=== PATIENT | female | born 1990 | race Caucasian/White ===

== ENCOUNTER 2017-04-07 02:25 | Emergency (ER) | payer BC ==
[~2017-04-07] VITALS: Ht 152.4 cm; Wt 74.3 kg
[2017-04-07 02:28] VITALS: Ht 152.4 cm; Wt 74.3 kg
[2017-04-07] MEDS ORDERED: ALUMINUM/MAGNESIUM SUSP 30 ML UDC PO STA (02:46)
[2017-04-07 03:11] LABS: BASO % 0.1 %; BASO ABS # 0.01 K/uL (0-0.2); COMPLETE YES; EOS % 1.5 %; HEMATOCRIT 36.6 % (37-47); IG% 0.4 %; LYMPH % 15.3 %; LYMPH ABS # 1.28 K/uL (1.2-3.4); MEAN CELL VOLUME 90.8 fL (80-100); MEAN CORPUSCULAR HEMOGLOBIN 31.8 pg (25-34); MEAN PLATELET VOLUME 11.5 fL (7.4-10.4); MONO % 9.3 %; NEUT % 73.4 %; PLATELET COUNT 103 K/uL (130-400); RED BLOOD COUNT 4.03 M/uL (4.2-5.4); WHITE BLOOD COUNT 8.39 K/uL (4.8-10.8)
[2017-04-07 03:31] LABS: ALT/SGPT 146 U/L (12-78); AST/SGOT 118 U/L (15-37); BLOOD UREA NITROGEN 11 mg/dl (7-18); BUN/CREATININE RATIO 12.3 (10-20); CALCIUM 8.9 mg/dl (8.5-10.1); CARBON DIOXIDE 23 mmol/L (21-32); CHLORIDE 106 mmol/L (98-107); CREATININE 0.87 mg/dl (0.60-1.20); GLUCOSE 85 mg/dl (70-99); SODIUM 138 mmol/L (136-145)
[2017-04-07 03:35] LABS: ALB/GLOB RATIO 0.7 (0.9-2); ALKALINE PHOSPHATASE 169 U/L (45-117)
[2017-04-07 04:30] VITALS: BP 145/92; PULSE 74; TEMP 36.5; O2SAT 98
--- NOTE | 2017-04-07 04:42 | EMERGENCY ROOM VISIT NOTE ---
History First contact with patient: 02:31 Chief Complaint: CHEST PAIN Stated Complaint: CHEST PAIN THROUGH TO BACK,CHILLS, CALLED L&D Nursing Triage Summary: c/o chest pain that radiates to back with cold and hot sweats. pt also reports trouble taking deep breaths. 38 weeks and 4 days . pain is mid sternal and radiates straight through her back. History of Present Illness The patient is a 27 year old female who presents to the Emergency Room with complaints of pain in her upper abdomen with radiation to the chest and back between the shoulder blades. The patient states that the pain started yesterday morning and has been gradually worsening throughout the day. She states the pain is worse when she takes a deep breath. She rates the discomfort an 8/10 and has not taken any medication for her symptoms. The patient is currently 38 weeks and 4 days . She was seen by her STEEL POST INSTALLER in the office yesterday morning and told that her blood pressure was slightly high, but they did not feel she had preeclampsia. She reports some nausea, but denies vomiting. She reports normal movement. She denies vaginal bleeding. She states that she has had some sensations consistent with contractions off and on for, but nothing consistent. This is her first . She denies any complications of this . Review of Systems A complete 10 point review of systems was reviewed with the patient with pertinent positives and negatives as per history of present illness. All else were negative. Past Medical/Surgical History Medical Problems: (1) HELLP (hemolytic anemia/elev liver enzymes/low platelets in ) Social History Smoking Status: Never Smoker Current/Historical Medications Scheduled Calcium/Vitamin D (Os-Randolph 500 Plus D), Unknown Dose PO DAILY Multivit/Min/Iron/Fol Ac/Pren ( Vitamin), 1 TAB PO DAILY Miscellaneous Medications Bioflavonoid Products (Vitamin C), Unknown Dose Physical Exam Vital Signs Date Time Temp Pulse Resp B/P (MAP) Pulse Ox O2 Delivery O2 Flow Rate FiO2 04/07/17 04:30 36.5 74 16 145/92 98 04/07/17 03:59 74 16 145/92 98 Room Air 04/07/17 03:21 67 16 137/92 98 Room Air 04/07/17 03:21 62 04/07/17 02:46 100 Room Air 04/07/17 02:28 36.5 77 24 143/96 100 Room Air Physical Exam VITALS: Vitals are noted on the nurse's note and reviewed by myself. Vital signs stable. GENERAL: This is a 27-year-old female, mildly anxious appearing but in no acute distress, nondiaphoretic, well-developed well-nourished. HEENT: PERRLA. Mucous membranes moist. Neck is supple without nuchal rigidity. HEART: Regular rate and rhythm without murmurs gallops or rubs. LUNGS: Clear to auscultation bilaterally without wheezes, rales or rhonchi. ABDOMEN: Fundal height consistent with gestational age. Mild tenderness in the epigastric region. No guarding or rebound tenderness. NEURO: Patient was alert and oriented to person place and time. Medical Decision & Procedures Laboratory Results 04/07/17 02:55 Red Blood Count 4.03, Mean Corpuscular Volume 90.8, Mean Corpuscular Hemoglobin 31.8, Mean Corpuscular Hemoglobin Concent 35.0, Mean Platelet Volume 11.5, Neutrophils (%) (Auto) 73.4, Lymphocytes (%) (Auto) 15.3, Monocytes (%) (Auto) 9.3, Eosinophils (%) (Auto) 1.5, Basophils (%) (Auto) 0.1, Neutrophils # (Auto) 6.16, Lymphocytes # (Auto) 1.28, Monocytes # (Auto) 0.78, Eosinophils # (Auto) 0.13, Basophils # (Auto) 0.01 04/07/17 02:55 Test 04/07/17 02:55 04/07/17 05:00 White Blood Count 8.39 K/uL (4.8-10.8) Red Blood Count 4.03 M/uL (4.2-5.4) Hemoglobin 12.8 g/dL (12.0-16.0) Hematocrit 36.6 % (37-47) Mean Corpuscular Volume 90.8 fL (80-100) Mean Corpuscular Hemoglobin 31.8 pg (25-34) Mean Corpuscular Hemoglobin Concent 35.0 g/dl (32-36) Platelet Count 103 K/uL (130-400) Mean Platelet Volume 11.5 fL (7.4-10.4) Neutrophils (%) (Auto) 73.4 % Lymphocytes (%) (Auto) 15.3 % Monocytes (%) (Auto) 9.3 % Eosinophils (%) (Auto) 1.5 % Basophils (%) (Auto) 0.1 % Neutrophils # (Auto) 6.16 K/uL (1.4-6.5) Lymphocytes # (Auto) 1.28 K/uL (1.2-3.4) Monocytes # (Auto) 0.78 K/uL (0.11-0.59) Eosinophils # (Auto) 0.13 K/uL (0-0.5) Basophils # (Auto) 0.01 K/uL (0-0.2) RDW Standard Deviation 46.5 fL (36.4-46.3) RDW Coefficient of Variation 14.1 % (11.5-14.5) Immature Granulocyte % (Auto) 0.4 % Immature Granulocyte # (Auto) 0.03 K/uL (0.00-0.02) Anion Gap 9.0 mmol/L (3-11) Est Creatinine Clear Calc Drug Dose 88.2 ml/min Estimated GFR () 106.6 Estimated GFR (Non- 91.9 BUN/Creatinine Ratio 12.3 (10-20) Calcium Level 8.9 mg/dl (8.5-10.1) Total Bilirubin 0.3 mg/dl (0.2-1) Aspartate Amino Transf (AST/SGOT) 118 U/L (15-37) Alanine Aminotransferase (ALT/SGPT) 146 U/L (12-78) Alkaline Phosphatase 169 U/L (45-117) Troponin I < 0.015 ng/ml (0-0.045) Total Protein 6.3 gm/dl (6.4-8.2) Albumin 2.5 gm/dl (3.4-5.0) Globulin 3.8 gm/dl (2.5-4.0) Albumin/Globulin Ratio 0.7 (0.9-2) Lipase 193 U/L (73-393) Urine Color YELLOW Urine Appearance CLEAR (CLEAR) Urine pH 7.0 (4.5-7.5) Urine Specific [place] 1.017 (1.000-1.030) Urine Protein NEG (NEG) Urine Glucose (UA) NEG (NEG) Urine Ketones NEG (NEG) Urine Occult Blood NEG (NEG) Urine Nitrite NEG (NEG) Urine Bilirubin NEG (NEG) Urine Urobilinogen NEG (NEG) Urine Leukocyte Esterase SMALL (NEG) Medications Administered Medications (Trade) Dose Ordered Sig/Eric Route Start Time Stop Time Status Last Admin Dose Admin Al Hydroxide/Mg Hydroxide (Maalox Susp) 30 ml NOW STAT PO 04/07/17 02:46 04/07/17 02:47 DC 04/07/17 02:54 30 ML ED Course The patient was evaluated as above. Labs were drawn and IV access was obtained. Patient was given Maalox without relief. Case was discussed with Dr. Adorno, who recommended sending the patient to L&D. Patient was reevaluated and findings were discussed. She will be taken directly to L&D. Medical Decision Differential diagnosis includes preeclampsia, HELLP syndrome, GERD, gallbladder disease, cardiac, among others. The patient is a 27-year-old female who presents today complaining of epigastric discomfort. Labs revealed a low platelet count of 103. The most recent platelet count I am able to find is 193 performed in January of this year. LFTs are elevated, with AST of 118, ALT of 146, and Alk phos of 169. Initial blood pressure was 143/96, and subsequent blood pressure was found to be 137/ 92. Given the persistent hypertension, elevated liver enzymes and mild thrombocytopenia, I am concerned for possible HELLP syndrome. I spoke with Dr. Adorno, who requested that I send the patient to labor and delivery. The patient remained stable throughout her stay in the emergency department. She was discharged to be taken directly to labor and delivery to be evaluated by OB/ COMPOUND FILLER. Medication Reconcilliation Current Medication List: was personally reviewed by ga Blood Pressure Screening Patient's blood pressure: Elevated blood pressure (will be followed by [employer] IN[employer]ER) Impression Primary Impression: HELLP syndrome Departure Information Referrals Clifton Adorno M.D. (PCP) Forms HOME CARE DOCUMENTATION FORM, IMPORTANT VISIT INFORMATION Patient Instructions [facility] Problem Qualifiers Primary Impression: HELLP syndrome Trimester: third trimester Qualified Codes: O14.23 - HELLP syndrome (HELLP) , third trimester
[2017-04-07 05:44] LABS: URINE APPEARANCE CLEAR (CLEAR); URINE BILIRUBIN NEG (NEG); URINE COLOR YELLOW; URINE EPITHELIAL CELL AUTO >30 /lpf (0-5); URINE NITRITE NEG (NEG); URINE SPECIFIC GRAVITY 1.017 (1.000-1.030); UROBILINOGEN NEG (NEG); ZZUR CULT IF INDIC CLEAN CATCH YES
[2017-04-07 05:48] LABS: MANUAL MICROSCOPIC REQUIRED? NO; REVIEW REQ? YES
[2017-04-07] MEDS ORDERED: BIOF500C2 (06:51)
[2017-04-14] MEDS ORDERED: PRENTAB26 PO (04:07)
[2017-04-14] MEDS ORDERED: CALC500C70 PO (06:52)
== END 2017-04-07 04:03 | disposition other institution (70) ==
LOC: C.EDB 02:27 → C.EDA 04:03
DX: O14.23 HELLP syndrome (HELLP), third trimester (principal)

== ENCOUNTER 2017-04-07 04:19 | Inpatient (IN) | payer BC ==
[~2017-04-07] VITALS: Ht 152.4 cm; Wt 75.0 kg
[2017-04-07] MEDS ORDERED: LACTATED RINGER'S 1000ML 1,000 ML IV SCH (05:02)
[2017-04-07] MEDS ORDERED: LACTATED RINGER'S 1000ML 1,000 ML IV PRN (05:02)
[2017-04-07] MEDS ORDERED: MAGNESIUM SULFATE IV ONE ×2 (05:30→06:00)
[2017-04-07] MEDS ORDERED: WTR IV ONE ×2 (05:30→06:00)
[2017-04-07 06:08] LABS: ALT/SGPT 178 U/L (12-78); BLOOD UREA NITROGEN 10 mg/dl (7-18); BUN/CREATININE RATIO 11.9 (10-20); CALCIUM 8.8 mg/dl (8.5-10.1); CARBON DIOXIDE 22 mmol/L (21-32); CHLORIDE 107 mmol/L (98-107); CREATININE 0.85 mg/dl (0.60-1.20); GLUCOSE 84 mg/dl (70-99); POTASSIUM 4.2 mmol/L (3.5-5.1); SODIUM 139 mmol/L (136-145)
[2017-04-07 06:11] VITALS: Ht 152.4 cm; Wt 75.0 kg
[2017-04-07 06:11] LABS: ALB/GLOB RATIO 0.6 (0.9-2); ALKALINE PHOSPHATASE 158 U/L (45-117); AST/SGOT 163 U/L (15-37)
[2017-04-07] MEDS: MAGNESIUM SULFATE / WTR 1,000 ML IV SCH (06:33)
[2017-04-07] MEDS ORDERED: BIOF500C2 (06:51)
[2017-04-07] MEDS ORDERED: MISOPROSTOL 25 MCG TAB PV STA (07:01)
[2017-04-07 07:08] LABS: INR 0.9 (0.9-1.1); PROTHROMBIN TIME (PATIENT) 9.4 SECONDS (9.0-12.0)
--- NOTE | 2017-04-07 07:37 | HISTORY & PHYSICAL EXAMINATION ---
DATE OF ADMISSION: 04/07/2017 REASON FOR ADMISSION AND HOSPITAL COURSE: Elevated liver functions and low platelet count. HISTORY OF PRESENT ILLNESS: The patient is a 27-year-old white female 1, para 0 who presents at 38.4 weeks seen in the ER this morning for upper midline midsternal pain. Upon workup, the patient was found to have a platelet count of 103 and elevated liver functions. This patient had noted to have a nosebleed on Thursday. Her blood pressure is stable. Her urine dipped 2+ on admission here on labor and delivery. The patient was subsequently admitted for HELLP syndrome and started on magnesium 6 gram loading dose followed by 2 grams per hour drip. course was uncomplicated. PAST MEDICAL HISTORY: Negative. PAST SURGICAL HISTORY: Negative. FAMILY HISTORY: Noncontributory. REVIEW OF SYSTEMS: Negative. ALLERGIES: No known allergies. MEDICATIONS: vitamins, Zyrtec as needed, vitamin C and calcium tablets. PHYSICAL EXAMINATION: HEENT: Within normal limits. No facial edema. LUNGS: Clear to auscultation. COR: Regular rate and rhythm. ABDOMEN: Soft. There is no right upper quadrant pain. There is midsternal pain that the patient has been experiencing. EXTREMITIES: No hand edema and no lower extremity edema. LABS: Platelet count is 103, hemoglobin 12.8, hematocrit 36.6. AST 163, ALT 178, alkaline phosphatase 138, LDH 294, BUN to creatinine ratio 11.9. PT 9.4, INR 0.9, PTT 26.9, fibrin degradation products 10:40 urine protein dipped 2+, negative by labs. ASSESSMENT: Atypical preeclampsia with HELLP syndrome. PLAN: Start magnesium sulfate 6 gram dose and then 2 gram drip followed by induction of labor with Cytotec. MTDD
[2017-04-07 10:28] LABS: URINE PROTIEN/CREAT RATIO 0.6 (0-0.2); URINE TOTAL PROTEIN 12.1 mg/dl (0-11.9)
[2017-04-07] MEDS ORDERED: LACTATED RINGER'S 1000ML 500 ML IV PRN ×2 (12:09→15:10)
[2017-04-07] MEDS ORDERED: OXYTOCIN 30 UNITS/500ML NSS IV PRN ×2 (12:15→19:15)
[2017-04-07 13:38] LABS: HEMATOCRIT 37.4 % (37-47); MEAN CELL VOLUME 89.9 fL (80-100); MEAN CORPUSCULAR HEMOGLOBIN 31.3 pg (25-34); RED BLOOD COUNT 4.16 M/uL (4.2-5.4); WHITE BLOOD COUNT 9.35 K/uL (4.8-10.8)
[2017-04-07 14:04] LABS: MEAN CORPUSCULAR HGB CONC 34.8 g/dl (32-36); MEAN PLATELET VOLUME 11.7 fL (7.4-10.4); PLATELET COUNT 91 K/uL (130-400)
[2017-04-07] MEDS ORDERED: FENTANYL CITRATE INJ 50 MCG/1 ML 2 ML VIAL ONE (14:11)
[2017-04-07] MEDS ORDERED: FENTANYL 2MCG/ML ROPIV 1.25MG/ML 100ML BAG EPI ONE (14:11)
[2017-04-07] MEDS ORDERED: EpHEDrine SULFATE INJ 50 MG/ML AMP ONE (14:11)
[2017-04-07] MEDS ORDERED: BUPIVACAINE 0.25% 30 ML VIAL ONE (14:11)
[2017-04-07] MEDS ORDERED: FENTANYL 2MCG/ML ROPIV 1.25MG/ML 100ML BAG EPI PRN (15:15)
[2017-04-07] MEDS ORDERED: EpHEDrine SULFATE INJ 50 MG/ML AMP IV PRN (15:15)
[2017-04-07] MEDS ORDERED: ONDANSETRON INJ 2 MG/ML 2 ML VIAL IV PRN (15:15)
[2017-04-07] MEDS ORDERED: NALOXONE HCL INJ 0.4 MG/1 ML VIAL/CARP IV PRN (15:15)
[2017-04-07] MEDS ORDERED: IBUPROFEN 600 MG TAB PO PRN (19:15)
[2017-04-07] MEDS ORDERED: HYDROCORTISONE ACETATE 25 MG SUPP PR PRN (19:15)
[2017-04-07] MEDS ORDERED: ACETAMINOPHEN 325 MG TAB PO PRN (19:15)
[2017-04-07] MEDS ORDERED: OXYCODONE/ACETAMINOPHEN 5-325 TAB PO PRN (19:15)
[2017-04-07] MEDS ORDERED: ACETAMINOPHEN/CODEINE 300/30MG TAB PO PRN ×2 (19:15)
[2017-04-07] MEDS ORDERED: BENZOCAINE 20% AER SPR 82.5 GM CAN EXT PRN (19:15)
[2017-04-07] MEDS ORDERED: SUPERCREAM 0.870 % 15GM JAR EXT PRN (19:15)
[2017-04-07] MEDS ORDERED: LANOLIN OINT EXT PRN ×2 (19:15)
[2017-04-07 19:49] LABS: HEMATOCRIT 34.4 % (37-47); MEAN CELL VOLUME 90.1 fL (80-100); MEAN CORPUSCULAR HEMOGLOBIN 31.2 pg (25-34); RED BLOOD COUNT 3.82 M/uL (4.2-5.4); WHITE BLOOD COUNT 9.94 K/uL (4.8-10.8)
[2017-04-07 19:50] LABS: MEAN CORPUSCULAR HGB CONC 34.6 g/dl (32-36); MEAN PLATELET VOLUME 11.9 fL (7.4-10.4); PLATELET COUNT 64 K/uL (130-400)
[2017-04-07] MEDS: DOCUSATE SODIUM 100 MG CAP PO SCH (20:11)
[2017-04-07 23:46] LABS: HEMATOCRIT 32.3 % (37-47); MEAN CELL VOLUME 89.2 fL (80-100); MEAN CORPUSCULAR HEMOGLOBIN 31.2 pg (25-34); MEAN PLATELET VOLUME 12.1 fL (7.4-10.4); PLATELET COUNT 54 K/uL (130-400); RED BLOOD COUNT 3.62 M/uL (4.2-5.4); WHITE BLOOD COUNT 11.17 K/uL (4.8-10.8)
[2017-04-08] MEDS: MAGNESIUM SULFATE / WTR 1,000 ML IV SCH ×2 (05:30→08:26)
[2017-04-08 05:39] LABS: HEMATOCRIT 32.7 % (37-47)
--- NOTE | 2017-04-08 06:40 | DELIVERY SUMMARY ---
DATE OF OPERATION: 04/07/2017 TIME OF DELIVERY: 1851 DELIVERY OF PLACENTA: 185 DELIVERY NOTE: The patient is a 27-year-old 1 para 0 at 38 weeks and 4 days gestation, who was admitted to labor and delivery on the morning of 04/07/2017 secondary to HELLP syndrome. Her platelets were found to be 102 and liver enzymes were elevated. She was given one dose of Cytotec intravaginally. She was found to be 1 cm, 50% effaced and minus 2 station. She progressed with oxytocin augmentation. Spontaneous rupture of membranes was noted at 1600 with clear amniotic fluid noted. She reached complete dilation at 1840 with the urge to push. Patient pushed to delivery at 1852. She delivered a viable male to an intact perineum in the left occiput anterior position. Nuchal cord x2 was reduced at delivery. The baby was placed on patient's abdomen. Cord was clamped x2 and cut. Apgars were 7 at one minute and 8 at five minutes. Please see nursing notes for further baby assessment. Cord blood was then obtained and intact placenta with 3-vessel cord was delivered at 1854 and sent to pathology. lower uterine segment and vagina was cleared of any blood clot and debris. Oxytocin infusion was then begun. Exploration of the perineum noted a first degree vaginal laceration which was repaired with 3-0 Vicryl suture in continuous running fashion. Excellent hemostasis was noted. No other lacerations were seen. Estimated blood loss was 300 mL. All sponge and instrument counts were found to be correct x2. Both patient and baby tolerated the delivery well and were in recovery with stable vital signs. I attest to the content of the Intraoperative Record and any orders documented therein. Any exception s are noted below.
[2017-04-08 06:47] LABS: MEAN CORPUSCULAR HEMOGLOBIN 31.5 pg (25-34); MEAN PLATELET VOLUME 11.8 fL (7.4-10.4); PLATELET COUNT 48 K/uL (130-400); RED BLOOD COUNT 3.59 M/uL (4.2-5.4); WHITE BLOOD COUNT 10.59 K/uL (4.8-10.8)
[2017-04-08 06:49] LABS: BUN/CREATININE RATIO 10.9 (10-20); CREATININE 0.8 mg/dl (0.60-1.20); POTASSIUM 4.1 mmol/L (3.5-5.1)
[2017-04-08 06:56] LABS: CALCIUM 7.1 mg/dl (8.5-10.1)
[2017-04-08] MEDS ORDERED: PRENATAL VITAMIN TAB PO SCH (08:00)
[2017-04-08] MEDS ORDERED: DIPHTHERIA/TETANUS/PERTUSSIS 0.5 ML SYR/VIAL IM. ONE (08:00)
[2017-04-08] MEDS ORDERED: FERROUS SULFATE 325 MG TAB PO SCH (08:00)
[2017-04-08 08:05] LABS: MEAN CELL VOLUME 89.8 fL (80-100); MEAN CORPUSCULAR HGB CONC 34.6 g/dl (32-36)
[2017-04-08] MEDS ORDERED: NURSING VERBAL MED ORDER ONE (08:15)
[2017-04-08] MEDS: DOCUSATE SODIUM 100 MG CAP PO SCH (08:17)
[2017-04-08] MEDS ORDERED: DEXAMETHASONE INJ 10 MG in SYRINGE 0 ML IV SCH (10:30)
--- NOTE | 2017-04-08 11:07 | Progress Note ---
Progress Note Date of Service Apr 08, 2017. Progress Note Met pt and reviewed care doing well c/o midsternal pain Stable vitals No bleeding from any orifice Pt on magnesium sulphate Rx for Decadron given IV plan labs boogie for 12:00 noemí reevaluate after labs
[2017-04-08 12:41] LABS: HEMATOCRIT 32.3 % (37-47); MEAN CELL VOLUME 89.5 fL (80-100); MEAN CORPUSCULAR HEMOGLOBIN 31.3 pg (25-34); RED BLOOD COUNT 3.61 M/uL (4.2-5.4); WHITE BLOOD COUNT 10.72 K/uL (4.8-10.8)
[2017-04-08 12:48] LABS: INR 0.9 (0.9-1.1); PARTIAL THROMBOPLASTIN RATIO 1.1; PROTHROMBIN TIME (PATIENT) 9.9 SECONDS (9.0-12.0)
[2017-04-08 12:50] LABS: MEAN PLATELET VOLUME 10.7 fL (7.4-10.4); PLATELET COUNT 36 K/uL (130-400)
[2017-04-08 13:28] LABS: BUN/CREATININE RATIO 12.9 (10-20); CREATININE 0.7 mg/dl (0.60-1.20)
[2017-04-08 13:46] LABS: MAGNESIUM THERAPEUTIC(L&DONLY) 6.3 mg/dl (1.8-2.4)
--- NOTE | 2017-04-08 14:41 | Progress Note ---
Progress Note Date of Service Apr 08, 2017. Progress Note Pt labs reviewed Worsening platelets and LFT's discussed labs with pt discussed transfer to [facility] [place] Dr Castrejon has agreed to accept pt consent signed for transfer
[2017-04-08] MEDS ORDERED: BISACODYL 5 MG TABEC PO SCH (20:00)
[2017-04-09] MEDS ORDERED: BISACODYL 10 MG SUPP PR PRN (07:00)
[2017-04-14] MEDS ORDERED: PRENTAB26 PO (04:07)
[2017-04-14] MEDS ORDERED: CALC500C70 PO (06:52)
== END 2017-04-08 15:23 | disposition short-term general hospital (02) | DRG 775 ==
LOC: C.LD 04:19 → C.OPB 04:19 → C.LD 05:05
PROVIDERS: ADMIT Obstetrics & Gynecology; ATTEND Obstetrics & Gynecology
PROC: 0UQGXZZ Repair Vagina, External Approach (ICD-10-PCS; principal; 2017-04-07)
PROC: 10E0XZZ Delivery of Products of Conception, External Approach (ICD-10-PCS; principal; 2017-04-07)
PROC: 3E0P7GC Introduction of Other Therapeutic Substance into Female Reproductive, Via Natural or Artificial Opening (ICD-10-PCS; principal; 2017-04-07)
DX: O14.24 HELLP syndrome, complicating childbirth (principal); O69.81X0 Labor and delivery complicated by cord around neck, without compression, not applicable or unspecified; O71.4 Obstetric high vaginal laceration alone; Z37.0 Single live birth; Z3A.38 38 weeks gestation of pregnancy

== ENCOUNTER 2017-04-14 14:29 | Emergency (ER) | payer BC ==
[~2017-04-14] VITALS: Ht 152.4 cm; Wt 66.4 kg
[~2017-04-14 14:29] MED LIST: BIOF500C2; CALC500C70 PO; PRENTAB26 PO
[2017-04-14 14:33] VITALS: TEMP 37.1; Ht 152.4 cm; Wt 66.4 kg
[2017-04-14] MEDS ORDERED: DOCU100C PO (15:09)
[2017-04-14] MEDS ORDERED: ASCO500T3 PO (15:09)
--- NOTE | 2017-04-14 15:14 | EMERGENCY ROOM VISIT NOTE ---
History First contact with patient: 14:54 Chief Complaint: ABDOMINAL PAIN Stated Complaint: ABD. PAIN, SWEATS/COLD, LOWER BACK PAIN Nursing Triage Summary: pt to the ED with c/o post 1 wk ago and is having abd pain that is diffuse sent here by OB light bleeding was seen in [place] for HELP syndrome on 04/10 310 platlets and increased LFT's see orange sheet History of Present Illness The patient is a 27 year old female who presents to the Emergency Room with complaints of generalized abdominal pain. She delivered at [facility] 1 week previously 04/07 with a healthy baby boy (Oleksandr). She was induced for pre- eclampsia (headaches, abdominal pain and hypertension) @ 38 + 4 weeks 04/07. Umbilical and suprapubic constant abdominal pain for 2 days, hurts with sneezing /coughing and feels better when she bends over, severity 8/10 currently, at worse 10/10, associated night time sweating. She denies any nausea or vomiting. Having normal/slightly hard BM - last time this morning. No current headaches. Her back is sore where her epidural was placed - was kept in for 4 days due to low platelets. Having continued PV bleeding - few clots quater sized. 1 degree tear with 1 stitch. Review of Systems See below Constitutional: + chills, No fever Eyes: No worsening of vision ENT: No hearing loss Respiratory: No cough, No sputum, No shortness of breath Cardiovascular: + edema (improving from ), No chest pain, No claudication, No palpitations Abdomen: + pain, No nausea, No vomiting, No diarrhea, No constipation, No GI bleeding Musculoskeletal: No joint pain, No muscle pain Genitourinary - Female: No dysuria, No urinary frequency, No urinary urgency , No urinary incontinence, No urinary retention, No hematuria Endocrine: No fatigue, No excessive thirst, No excessive urination Integumentary: No rash, No itch Past Medical/Surgical History Medical Problems: (1) HELLP (hemolytic anemia/elev liver enzymes/low platelets in ) Social History Smoking Status: Never Smoker Smokeless Tobacco Use: No Alcohol Use: occasionally Drug Use: none Marital Status: Housing Status: lives with family Occupation Status: employed (hairdresser) Current/Historical Medications Scheduled Ascorbic Acid (Vitamin C), 1 TAB PO DAILY Calcium/Vitamin D (Os-Randolph 500 Plus D), 1 TAB PO DAILY Cephalexin Monohydrate (Keflex), 500 MG PO QID Docusate Sodium (Stool Softener), 100 MG PO BID Multivit/Min/Iron/Fol Ac/Pren ( Vitamin), 1 TAB PO DAILY Physical Exam Vital Signs Date Time Temp Pulse Resp B/P (MAP) Pulse Ox O2 Delivery O2 Flow Rate FiO2 04/14/17 17:56 77 18 119/91 100 Room Air 04/14/17 16:37 78 18 108/68 98 Room Air 04/14/17 15:45 78 18 123/74 98 Room Air 04/14/17 14:33 37.1 98 16 120/85 97 Room Air Pain Rating (0-10): 8 Physical Exam GENERAL: Awake, alert, not ill appearing, in no apparent distress HEAD: Normocephalic, atraumatic. No edema. EYES: Normal conjunctiva. Sclera non-icteric. NECK: Supple. No nuchal rigidity. RESPIRATORY: CTA bilaterally. No wheezes rales or rhonchi. CARDIAC: Borderline tachycardic rate, normal rhythm. ABDOMEN: Soft, distended from recent delivery. tenderness to palpation periumbilical, suprapubic, and LLQ. CVA tenderness on left flank MUSCULOSKELETAL: Atraumatic. No edema. NEURO: Normal sensorium. Medical Decision & Procedures Laboratory Results 04/14/17 15:45 Red Blood Count 3.66, Mean Corpuscular Volume 91.0, Mean Corpuscular Hemoglobin 31.4, Mean Corpuscular Hemoglobin Concent 34.5, Mean Platelet Volume 9.3, Neutrophils (%) (Auto) 70.1, Lymphocytes (%) (Auto) 17.5, Monocytes (%) (Auto) 8.8, Eosinophils (%) (Auto) 1.9, Basophils (%) (Auto) 0.2, Neutrophils # (Auto) 5.91, Lymphocytes # (Auto) 1.48, Monocytes # (Auto) 0.74, Eosinophils # (Auto) 0.16, Basophils # (Auto) 0.02 04/14/17 15:45 Test 04/14/17 15:40 04/14/17 15:45 Urine Color DK YELLOW Urine Appearance CLOUDY (CLEAR) Urine pH 5.5 (4.5-7.5) Urine Specific [place] 1.027 (1.000-1.030) Urine Protein NEG (NEG) Urine Glucose (UA) NEG (NEG) Urine Ketones NEG (NEG) Urine Occult Blood 3+ (NEG) Urine Nitrite NEG (NEG) Urine Bilirubin NEG (NEG) Urine Urobilinogen NEG (NEG) Urine Leukocyte Esterase MODERATE (NEG) Urine WBC (Auto) >30 /hpf (0-5) Urine RBC (Auto) 10-30 /hpf (0-4) Urine Hyaline Casts (Auto) 10-30 /lpf (0-5) Urine Epithelial Cells (Auto) 5-10 /lpf (0-5) Urine Bacteria (Auto) NEG (NEG) White Blood Count 8.44 K/uL (4.8-10.8) Red Blood Count 3.66 M/uL (4.2-5.4) Hemoglobin 11.5 g/dL (12.0-16.0) Hematocrit 33.3 % (37-47) Mean Corpuscular Volume 91.0 fL (80-100) Mean Corpuscular Hemoglobin 31.4 pg (25-34) Mean Corpuscular Hemoglobin Concent 34.5 g/dl (32-36) Platelet Count 266 K/uL (130-400) Mean Platelet Volume 9.3 fL (7.4-10.4) Neutrophils (%) (Auto) 70.1 % Lymphocytes (%) (Auto) 17.5 % Monocytes (%) (Auto) 8.8 % Eosinophils (%) (Auto) 1.9 % Basophils (%) (Auto) 0.2 % Neutrophils # (Auto) 5.91 K/uL (1.4-6.5) Lymphocytes # (Auto) 1.48 K/uL (1.2-3.4) Monocytes # (Auto) 0.74 K/uL (0.11-0.59) Eosinophils # (Auto) 0.16 K/uL (0-0.5) Basophils # (Auto) 0.02 K/uL (0-0.2) RDW Standard Deviation 48.2 fL (36.4-46.3) RDW Coefficient of Variation 14.5 % (11.5-14.5) Immature Granulocyte % (Auto) 1.5 % Immature Granulocyte # (Auto) 0.13 K/uL (0.00-0.02) Prothrombin Time 10.2 SECONDS (9.0-12.0) Prothromb Time International Ratio 1.0 (0.9-1.1) Activated Partial Thromboplast Time 26.1 SECONDS (21.0-31.0) Partial Thromboplastin Ratio 1.0 Anion Gap 7.0 mmol/L (3-11) Est Creatinine Clear Calc Drug Dose 100.7 ml/min Estimated GFR () 134.0 Estimated GFR (Non- 115.6 BUN/Creatinine Ratio 19.9 (10-20) Calcium Level 9.0 mg/dl (8.5-10.1) Magnesium Level 2.2 mg/dl (1.8-2.4) Total Bilirubin 0.4 mg/dl (0.2-1) Aspartate Amino Transf (AST/SGOT) 25 U/L (15-37) Alanine Aminotransferase (ALT/SGPT) 117 U/L (12-78) Alkaline Phosphatase 136 U/L (45-117) Total Protein 6.4 gm/dl (6.4-8.2) Albumin 2.7 gm/dl (3.4-5.0) Globulin 3.7 gm/dl (2.5-4.0) Albumin/Globulin Ratio 0.7 (0.9-2) Medications Administered Medications (Trade) Dose Ordered Sig/Eric Route Start Time Stop Time Status Last Admin Dose Admin Sodium Chloride 1,000 ml @ 999 mls/hr Q1H1M STAT IV 04/14/17 15:31 04/14/17 16:31 DC 04/14/17 15:47 999 MLS/HR Ceftriaxone Sodium (Rocephin Inj) 1 gm NOW STAT IV 04/14/17 16:30 04/14/17 16:31 DC 04/14/17 17:52 1 GM ED Course 1455: full h&p obtained from patient 1518: case discussed with dr. morales; who obtained his own h&p 1700: Patient sent for Pelvic TVUS. 1730: patient visited by OB, Dr. Campbell 1745: Pelvic exam performed by OB. 1815: Patient cleared for discharge Medical Decision Prior records/ancillary studies reviewed. Triage Nursing notes reviewed. Additional history obtained from patient. The patient's history was concerning for abdominal pain. Differential diagnosis: Etiologies such as endometritis, constipation, UTI, renal colic, pancreatitis, obstruction, mesenteric ischemia, infections, diverticulitis,as well as others were entertained. Physical examination findings: As above. ER treatment provided: Morphine Cytotec Diagnostics interpreted by me: The labs revealed nothing abnormal. Imaging studies: TVUS reveals products in the vaginal canal, likely clots. Consultation: A consultation was placed with [facility]. The case was discussed and diagnostics were reviewed. The patient was evaluated in the ER for further treatment. By the evaluation outlined above emergent etiologies such as appendicitis, diverticulitis, PUD, biliary pathology, UTI, pancreatitis, obstruction, mesenteric ischemia, aortic pathology, infections, inflammatory bowel disease, renal colic, as well as others were deemed relatively unlikely. The patient and family informed about the findings as listed above. All questions were answered and they were pleased with the treatment. Return instructions were outlined and the patient was discharged in stable condition. Outpatient prescription management: keflex 500mg QID Cytotec given prior to DC Referral: The patient was referred back to OB for follow-up in 2 to 3 days for a recheck of the current condition. Medication Reconcilliation Current Medication List: was personally reviewed by me Blood Pressure Screening Patient's blood pressure: Normal blood pressure Impression Primary Impression: UTI (urinary tract infection) Departure Information Dispostion Home / Self-Care Condition FAIR Prescriptions Cephalexin Monohydrate (Keflex) 500 Mg Cap 500 MG PO QID, #40 CAP Prov: Kam Morales, 04/14/17 Referrals Higinio Brown D.O. (PCP) Patient Instructions My [facility] Additional Instructions Discussed case with Dr. Morales and Dr. Campbell: --Pain medication given prior to discharge; --Started on keflex and given as outpatient to treat for UTI --Cytotec given for potential of retained POC --Plan to follow up with OB in 2-[address] Walter note for complete discharge instructions and plan Resident Tracking Resident Involvement: Resident Care Provided Care Provided: Adult ED Problem Qualifiers Primary Impression: UTI (urinary tract infection) Urinary tract infection type: site unspecified Hematuria presence: without hematuria Qualified Codes: N39.0 - Urinary tract infection, site not specified
[2017-04-14] MEDS ORDERED: SODIUM CHLORIDE 0.9% 1000ML 1,000 ML IV STA (15:31)
[2017-04-14 16:01] LABS: BASO % 0.2 %; BASO ABS # 0.02 K/uL (0-0.2); COMPLETE YES; EOS % 1.9 %; HEMATOCRIT 33.3 % (37-47); IG% 1.5 %; LYMPH % 17.5 %; LYMPH ABS # 1.48 K/uL (1.2-3.4); MEAN CORPUSCULAR HEMOGLOBIN 31.4 pg (25-34); MEAN CORPUSCULAR HGB CONC 34.5 g/dl (32-36); MEAN PLATELET VOLUME 9.3 fL (7.4-10.4); MONO % 8.8 %; NEUT % 70.1 %; PLATELET COUNT 266 K/uL (130-400); RED BLOOD COUNT 3.66 M/uL (4.2-5.4); WHITE BLOOD COUNT 8.44 K/uL (4.8-10.8)
[2017-04-14 16:05] LABS: URINE APPEARANCE CLOUDY (CLEAR); URINE BILIRUBIN NEG (NEG); URINE COLOR DK YELLOW; URINE NITRITE NEG (NEG); URINE PH 5.5 (4.5-7.5); URINE SPECIFIC GRAVITY 1.027 (1.000-1.030); UROBILINOGEN NEG (NEG)
[2017-04-14 16:06] LABS: MANUAL MICROSCOPIC REQUIRED? NO; REVIEW REQ? NO
[2017-04-14 16:17] LABS: PROTHROMBIN TIME (PATIENT) 10.2 SECONDS (9.0-12.0)
[2017-04-14 16:20] LABS: BUN/CREATININE RATIO 19.9 (10-20); CREATININE 0.72 mg/dl (0.60-1.20); MAGNESIUM 2.2 mg/dl (1.8-2.4); POTASSIUM 3.9 mmol/L (3.5-5.1)
[2017-04-14 16:23] LABS: ALB/GLOB RATIO 0.7 (0.9-2)
[2017-04-14] MEDS ORDERED: CEFTRIAXONE SOD INJ 1 GM ADDVIAL IV STA (16:30)
--- NOTE | 2017-04-14 17:25 | DIAGNOSTIC IMAGING REPORT ---
PELVIC COMPLETE NON OB HISTORY: 27 years-old Female recent del w/ lower abd pain acute pelvic pain. Patient is status post vaginal delivery one week prior. Initial exam. COMPARISON: None available. TECHNIQUE: Multiple real-time sonographic images of the deep pelvic structures were obtained transabdominally assessing grayscale appearance and color flow. FINDINGS: Anteflexed uterus measures 14.3 x 8.1 x 10.0 cm. Endometrium measures 1.1 cm and is mildly heterogeneous with areas of internal vascularity detected. Heterogeneous material within the endometrial canal is seen measuring up to 0.7 x 1.0 x 1.5 cm. Left ovary measures 2.9 x 1.7 x 2.3 cm with arterial inflow documented. Right ovary measures 3.3 x 1.4 x 1.5 cm with arterial inflow documented. There is no significant free pelvic fluid. IMPRESSION: 1. Heterogeneous material within the endometrial canal demonstrating internal vascularity is very suspicious for retained products of conception. Correlate with clinical exam and beta hCG level. 2. Unremarkable sonographic appearance of the bilateral ovaries without evidence of torsion. The above report was generated using voice recognition software. It may contain grammatical, syntax or spelling errors. Electronically signed by: Jeremy Mullins M.D. 04/14/2017 5:23 PM Dictated Date/Time: 04/14/2017 5:18 PM
[2017-04-14] MEDS ORDERED: CEPH500C PO (18:03)
--- NOTE | 2017-04-14 18:03 | Medical Consult ---
Consultation Date of Consultation: Apr 14, 2017. Attending Physician: Reason for Consultation: Abdominal pain, s/p History of Present Illness Patient is a 27 yo s/p a week ago on 04/08/17 Delivery was complicated by HELLP syndrome. She was transferred to [facility] on same day HELLP syndrome resolved and she was discharged on 04/10 from [facility] She has been doing well until 2 days ago when she started to have lower abd pain and got worse today It has been dull lower abdominal pain on both sides and middle over the bladder. No HOPE/ Change is vision/ RUQ pain/ N&V Night sweats +, no fever Apetite has been good VB is minimal No d/c or odor She has been breast feeding Past Medical/Surgical History Medical Problems: (1) Lower abdominal pain Status: Acute (2) UTI (urinary tract infection) Status: Acute Social History Smoking Status: Never Smoker Smokeless Tobacco Use: No Alcohol Use: none Drug Use: none, cocaine Marital Status: Housing Status: lives with family Occupation Status: employed (hairdresser) Allergies Coded Allergies: No Known Allergies (Unverified , 04/07/17) Review of Systems Constitutional: + sweats Abdomen: + pain Genitourinary - Female: + dysuria, + urinary frequency, + urinary urgency, + urinary incontinence, No urinary retention, No hematuria, No dysmenorrhea, No menorrhagia, No metrorrhagia, No rash, No vaginal bleeding, No vaginal discharge , No vaginal itching, No vulvodynia, No , No problem reported Physical Exam Date Time Temp Pulse Resp B/P (MAP) Pulse Ox O2 Delivery O2 Flow Rate FiO2 04/14/17 16:37 78 18 108/68 98 Room Air 04/14/17 15:45 78 18 123/74 98 Room Air 04/14/17 14:33 37.1 98 16 120/85 97 Room Air General Appearance: WD/WN, no apparent distress Head: normocephalic Respiratory/Chest: chest non-tender, lungs clear Cardiovascular: regular rate, rhythm Abdomen/GI: normal bowel sounds, soft, + tenderness, + pertinent finding ( suprapubic, RLQ, LLQ tenderness+, no rebound, no guarding) Genitourinary - Female: external genitalia normal, normal cervix, + pertinent finding (normal minimal lochia) Extremities/Musculoskelatal: normal inspection, pelvis stable Skin: normal color, warm/dry Laboratory Results Last 24 Hours Test 04/14/17 15:40 04/14/17 15:45 04/14/17 17:32 Urine Color DK YELLOW Urine Appearance CLOUDY Urine pH 5.5 Urine Specific [place] 1.027 Urine Protein NEG Urine Glucose (UA) NEG Urine Ketones NEG Urine Occult Blood 3+ Urine Nitrite NEG Urine Bilirubin NEG Urine Urobilinogen NEG Urine Leukocyte Esterase MODERATE Urine WBC (Auto) >30 /hpf Urine RBC (Auto) 10-30 /hpf Urine Hyaline Casts (Auto) 10-30 /lpf Urine Epithelial Cells (Auto) 5-10 /lpf Urine Bacteria (Auto) NEG White Blood Count 8.44 K/uL Red Blood Count 3.66 M/uL Hemoglobin 11.5 g/dL Hematocrit 33.3 % Mean Corpuscular Volume 91.0 fL Mean Corpuscular Hemoglobin 31.4 pg Mean Corpuscular Hemoglobin Concent 34.5 g/dl Platelet Count 266 K/uL Mean Platelet Volume 9.3 fL Neutrophils (%) (Auto) 70.1 % Lymphocytes (%) (Auto) 17.5 % Monocytes (%) (Auto) 8.8 % Eosinophils (%) (Auto) 1.9 % Basophils (%) (Auto) 0.2 % Neutrophils # (Auto) 5.91 K/uL Lymphocytes # (Auto) 1.48 K/uL Monocytes # (Auto) 0.74 K/uL Eosinophils # (Auto) 0.16 K/uL Basophils # (Auto) 0.02 K/uL RDW Standard Deviation 48.2 fL RDW Coefficient of Variation 14.5 % Immature Granulocyte % (Auto) 1.5 % Immature Granulocyte # (Auto) 0.13 K/uL Prothrombin Time 10.2 SECONDS Prothromb Time International Ratio 1.0 Activated Partial Thromboplast Time 26.1 SECONDS Partial Thromboplastin Ratio 1.0 Sodium Level 142 mmol/L Potassium Level 3.9 mmol/L Chloride Level 111 mmol/L Carbon Dioxide Level 24 mmol/L Anion Gap 7.0 mmol/L Blood Urea Nitrogen 14 mg/dl Creatinine 0.72 mg/dl Est Creatinine Clear Calc Drug Dose 100.7 ml/min Estimated GFR () 134.0 Estimated GFR (Non- 115.6 BUN/Creatinine Ratio 19.9 Random Glucose 92 mg/dl Calcium Level 9.0 mg/dl Magnesium Level 2.2 mg/dl Total Bilirubin 0.4 mg/dl Aspartate Amino Transf (AST/SGOT) 25 U/L Alanine Aminotransferase (ALT/SGPT) 117 U/L Alkaline Phosphatase 136 U/L Total Protein 6.4 gm/dl Albumin 2.7 gm/dl Globulin 3.7 gm/dl Albumin/Globulin Ratio 0.7 Assessment & Plan AP: 27yo s/p , HELLP syndrome on 04/08 Now with lower abdominal pain US with thickened endometrium, ? retained POC Normal WBCC, Afebrile, no VB Most likely blood or debris following Discussed the options, observation, Cytotec to facilitate expulsion of Blood/ POC and surgery as last resort She likes to try Cytotec U/A suggesting UTI, pending culture Plan: pain meds, Keflex for UTI, PO Cytotec once and f/u in office with repeat US in 2-3 days I will contact my office and arrange that for her All questions were answered Additional Copies To Canan. Campbell MD
[2017-04-14] MEDS ORDERED: MoRPHine SULFATE 4 MG/ML 1 ML CARP\\VIAL IV STA (18:05)
[2017-04-14] MEDS ORDERED: ONDANSETRON INJ 2 MG/ML 2 ML VIAL IV STA (18:05)
--- NOTE | 2017-04-14 18:20 | EMERGENCY ROOM VISIT NOTE ---
History Report prepared by Erin: Juana Fajardo Under the Supervision of: Jes EdenO. First contact with patient: 14:53 Chief Complaint: ABDOMINAL PAIN Stated Complaint: ABD. PAIN, SWEATS/COLD, LOWER BACK PAIN Nursing Triage Summary: pt to the ED with c/o post 1 wk ago and is having abd pain that is diffuse sent here by OB light bleeding was seen in [place] for HELP syndrome on 04/10 310 platlets and increased LFT's see orange sheet History of Present Illness The patient is a 27 year old female who presents to the Emergency Room with complaints of worsening diffuse abdominal for the past 2-3 days. She rates her current pain as an 8/10 in severity. She is 1 week post-. She was induced 1 week early due to preeclampsia in her first . She was transferred to [facility] after delivery for HELLP syndrome. The patient was discharged home and was feeling better. Her child is doing well. This is her first child. The patient was feeling constipated but has had multiple normal bowel movements since being discharged. She is still bleeding vaginally. She called her ob-gasket notcher and went to see her PCP today. Both offices advised her to come to the ED for further evaluation. She denies any headache, nausea, vomiting, diarrhea, and urinary symptoms. She does admit to dysuria initially following discharge but that has resolved. Source of History: patient Onset: 2-3 days Position: abdomen Symptom Intensity: 8/10 Timing: worsening Associated Symptoms: No headache, No nausea, No vomiting, No diarrhea, No urinary symptoms Review of Systems See HPI for pertinent positives & negatives. A total of 10 systems reviewed and were otherwise negative. Past Medical & Surgical Medical Problems: (1) HELLP (hemolytic anemia/elev liver enzymes/low platelets in ) Family History No pertinent history stated. Social History Smoking Status: Never Smoker Smokeless Tobacco Use: No Alcohol Use: occasionally Drug Use: none Marital Status: Housing Status: lives with family Occupation Status: employed (hairdresser) Current/Historical Medications Scheduled Ascorbic Acid (Vitamin C), 1 TAB PO DAILY Calcium/Vitamin D (Os-Randolph 500 Plus D), 1 TAB PO DAILY Cephalexin Monohydrate (Keflex), 500 MG PO QID Docusate Sodium (Stool Softener), 100 MG PO BID Multivit/Min/Iron/Fol Ac/Pren ( Vitamin), 1 TAB PO DAILY Allergies Coded Allergies: No Known Allergies (Unverified , 04/07/17) Physical Exam Vital Signs Date Time Temp Pulse Resp B/P (MAP) Pulse Ox O2 Delivery O2 Flow Rate FiO2 04/14/17 17:56 77 18 119/91 100 Room Air 04/14/17 16:37 78 18 108/68 98 Room Air 04/14/17 15:45 78 18 123/74 98 Room Air 04/14/17 14:33 37.1 98 16 120/85 97 Room Air Physical Exam GENERAL: alert, sitting up in bed, well-kempt, well appearing, well nourished, no distress, non-toxic EYE EXAM: normal conjunctiva OROPHARYNX: no exudate, no erythema, lips, buccal mucosa, and tongue normal and mucous membranes are moist LUNGS: Clear to auscultation. Normal chest wall mechanics HEART: no murmurs, S1 normal and S2 normal ABDOMEN: abdomen soft, slightly distended, minimal tenderness in suprapubic region, normo-active bowel sounds, no masses, no rebound or guarding. BACK: Back is symmetrical on inspection and there is no deformity, no midline tenderness, no CVA tenderness. Puncture wound to the lower lumbar region without surrounding erythema or infection : Deferred to OB SKIN: no rashes and no bruising UPPER EXTREMITIES: upper extremities are grossly normal. LOWER EXTREMITIES: No pitting edema. NEURO EXAM: Normal sensorium, cranial nerves II-XII grossly intact, normal speech, no gross weakness of arms, no gross weakness of legs. Medical Decision & Procedures Laboratory Results 04/14/17 15:45 Red Blood Count 3.66, Mean Corpuscular Volume 91.0, Mean Corpuscular Hemoglobin 31.4, Mean Corpuscular Hemoglobin Concent 34.5, Mean Platelet Volume 9.3, Neutrophils (%) (Auto) 70.1, Lymphocytes (%) (Auto) 17.5, Monocytes (%) (Auto) 8.8, Eosinophils (%) (Auto) 1.9, Basophils (%) (Auto) 0.2, Neutrophils # (Auto) 5.91, Lymphocytes # (Auto) 1.48, Monocytes # (Auto) 0.74, Eosinophils # (Auto) 0.16, Basophils # (Auto) 0.02 04/14/17 15:45 Test 04/14/17 15:40 04/14/17 15:45 Urine Color DK YELLOW Urine Appearance CLOUDY (CLEAR) Urine pH 5.5 (4.5-7.5) Urine Specific [place] 1.027 (1.000-1.030) Urine Protein NEG (NEG) Urine Glucose (UA) NEG (NEG) Urine Ketones NEG (NEG) Urine Occult Blood 3+ (NEG) Urine Nitrite NEG (NEG) Urine Bilirubin NEG (NEG) Urine Urobilinogen NEG (NEG) Urine Leukocyte Esterase MODERATE (NEG) Urine WBC (Auto) >30 /hpf (0-5) Urine RBC (Auto) 10-30 /hpf (0-4) Urine Hyaline Casts (Auto) 10-30 /lpf (0-5) Urine Epithelial Cells (Auto) 5-10 /lpf (0-5) Urine Bacteria (Auto) NEG (NEG) White Blood Count 8.44 K/uL (4.8-10.8) Red Blood Count 3.66 M/uL (4.2-5.4) Hemoglobin 11.5 g/dL (12.0-16.0) Hematocrit 33.3 % (37-47) Mean Corpuscular Volume 91.0 fL (80-100) Mean Corpuscular Hemoglobin 31.4 pg (25-34) Mean Corpuscular Hemoglobin Concent 34.5 g/dl (32-36) Platelet Count 266 K/uL (130-400) Mean Platelet Volume 9.3 fL (7.4-10.4) Neutrophils (%) (Auto) 70.1 % Lymphocytes (%) (Auto) 17.5 % Monocytes (%) (Auto) 8.8 % Eosinophils (%) (Auto) 1.9 % Basophils (%) (Auto) 0.2 % Neutrophils # (Auto) 5.91 K/uL (1.4-6.5) Lymphocytes # (Auto) 1.48 K/uL (1.2-3.4) Monocytes # (Auto) 0.74 K/uL (0.11-0.59) Eosinophils # (Auto) 0.16 K/uL (0-0.5) Basophils # (Auto) 0.02 K/uL (0-0.2) RDW Standard Deviation 48.2 fL (36.4-46.3) RDW Coefficient of Variation 14.5 % (11.5-14.5) Immature Granulocyte % (Auto) 1.5 % Immature Granulocyte # (Auto) 0.13 K/uL (0.00-0.02) Prothrombin Time 10.2 SECONDS (9.0-12.0) Prothromb Time International Ratio 1.0 (0.9-1.1) Activated Partial Thromboplast Time 26.1 SECONDS (21.0-31.0) Partial Thromboplastin Ratio 1.0 Anion Gap 7.0 mmol/L (3-11) Est Creatinine Clear Calc Drug Dose 100.7 ml/min Estimated GFR () 134.0 Estimated GFR (Non- 115.6 BUN/Creatinine Ratio 19.9 (10-20) Calcium Level 9.0 mg/dl (8.5-10.1) Magnesium Level 2.2 mg/dl (1.8-2.4) Total Bilirubin 0.4 mg/dl (0.2-1) Aspartate Amino Transf (AST/SGOT) 25 U/L (15-37) Alanine Aminotransferase (ALT/SGPT) 117 U/L (12-78) Alkaline Phosphatase 136 U/L (45-117) Total Protein 6.4 gm/dl (6.4-8.2) Albumin 2.7 gm/dl (3.4-5.0) Globulin 3.7 gm/dl (2.5-4.0) Albumin/Globulin Ratio 0.7 (0.9-2) Laboratory results per my review. Medications Administered Medications (Trade) Dose Ordered Sig/Eric Route Start Time Stop Time Status Last Admin Dose Admin Sodium Chloride 1,000 ml @ 999 mls/hr Q1H1M STAT IV 04/14/17 15:31 04/14/17 16:31 DC 04/14/17 15:47 999 MLS/HR Ceftriaxone Sodium (Rocephin Inj) 1 gm NOW STAT IV 04/14/17 16:30 04/14/17 16:31 DC 04/14/17 17:52 1 GM ECG Indication: abdominal pain Rate (beats per minute): 77 Rhythm: normal sinus Findings: no acute ischemic change, no ectopy ED Course ED COURSE: Vital signs were reviewed and showed normal vitals. The patients medical record was reviewed The above diagnostic studies were performed and reviewed. ED treatments and interventions as stated above. 1453: The patient was evaluated in room A2. A complete history and physical examination was performed. 1531: NSS 1000 ml @ 999 mls/hr IV 1630: Rocephin 1 gm IV 1745: Patient was evaluated by GRAIN MANAGER at bedside. They do not believe that this is endometritis. Agree with Keflex and discharged to follow-up in 2 days for repeat ultrasound. Patient given Cytotec. 3. 1805: Upon reevaluation, the patient is stable.I discussed my findings with the patient and understands and agrees with the treatment plan. Based on the patients age, coexisting illnesses, exam and lab findings the decision to treat as an outpatient was made. The patient remained stable while under my care. The patient appeared well at the time of discharge. Medical Decision Differential diagnoses includes but is not limited to gastritis, peptic ulcer disease, GERD, gallbladder disease, pancreatitis, small bowel obstruction, acute coronary syndrome, pericarditis, ischemic bowel, irritable bowel disease, irritable bowel syndrome, appendicitis, diverticulitis, malignancy, hernia, urinary tract infection, torsion, /ectopic , perforation, trauma, infectious. Patient is a 27-year-old female one week post vaginal delivery that presents to the ER for lower abdominal pain. Recently had preeclampsia and hellp syndrome. She did admit to dysuria initially upon discharge. No recorded fevers. Vitals are stable. No leukocytosis. CBC all BMP is unremarkable. ALT is 117 which is significantly improved from previous LFTs in the 600s. PT and INR was unremarkable. Platelets were improved. UA shows a moderate amount of leukocytes and greater than 30 white cells with 5-10 epithelial cells. I do favor this is consistent with a UTI racheal with her symptoms. She was given IV Rocephin. Pelvic ultrasound showed small retained products. Patient was evaluated by OB/sales consultant insurance bedside. She believes based on her exam and interpretation of the ultrasound that this is likely clot which is retained. Pelvic was performed by them. OB does not believe that this is endometritis. They recommend Keflex and follow-up as an outpatient in 2 days with/for a repeat ultrasound. Patient was given Cytotec per OB while in the ER. She was discharged to follow-up with them as an outpatient with Keflex for her UTI. Patient was given small dose of morphine while in the ER. She was seen independently by myself but in combination with the resident. Discussed with Pt concerning signs and symptoms to watch out for. Pt was instructed to follow up with their PCP and discussed with the patient their option to return to the ED at anytime for persistent or worsening symptoms. The appropriate anticipatory guidance and out-patient management, including indications for return to the emergency department, were explained at length to the patient and understood. Medication Reconcilliation Current Medication List: was personally reviewed by me Blood Pressure Screening Patient's blood pressure: Normal blood pressure Impression Primary Impression: UTI (urinary tract infection) Additional Impressions: Lower abdominal pain ? Retained products of conception Transaminitis Scribe Attestation The scribe's documentation has been prepared under my direction and personally reviewed by me in its entirety. I confirm that the note above accurately reflects all work, treatment, procedures, and medical decision making performed by me. Departure Information Dispostion Home / Self-Care Prescriptions Cephalexin Monohydrate (Keflex) 500 Mg Cap 500 MG PO QID, #40 CAP Prov: Kam Morales, DO 04/14/17 Referrals Higinio Brown D.O. (PCP) Forms HOME CARE DOCUMENTATION FORM, IMPORTANT VISIT INFORMATION Patient Instructions Abdominal Pain - [facility], [facility], UTI Additional Instructions Please follow up with your primary care doctor with in the next 24 hours. Any worsening of your symptoms, please return to the ED immediately. This includes any fevers greater than 100.4, worsening pain, chest pain, shortness breath, persistent nausea, vomiting, unable to eat or drink, or any other concerning signs or symptoms from your standpoint. Problem Qualifiers Primary Impression: UTI (urinary tract infection) Urinary tract infection type: site unspecified Hematuria presence: without hematuria Qualified Codes: N39.0 - Urinary tract infection, site not specified
[2017-04-14 18:24] VITALS: BP 119/88; PULSE 78; O2SAT 100
[2017-04-14] MEDS ORDERED: MISOPROSTOL 200 MCG TAB PO ONE (18:30)
== END 2017-04-14 18:57 | disposition home or self-care (01) ==
LOC: C.EDB 14:34 → C.EDA 18:57
DX: N39.0 Urinary tract infection, site not specified (principal); R10.30 Lower abdominal pain, unspecified; R74.0 Nonspecific elevation of levels of transaminase and lactic acid dehydrogenase [LDH]; R93.8 Abnormal findings on diagnostic imaging of other specified body structures; Z87.59 Personal history of other complications of pregnancy, childbirth and the puerperium